=== PATIENT | female | born 1975 | race Hispanic/Latino ===

== ENCOUNTER 2022-12-29 05:32 | Day surgery (SDC) | payer OTHER ==
[2022-12-28 11:28] VITALS: BMI 28.6
[2022-12-29] MEDS ORDERED: Sevoflurane 250 ML INH ANEST BOTTLE ONE (06:27)
[2022-12-29] MEDS ORDERED: Lidocaine 1% PF 5 ML VIAL ONE (06:46)
[2022-12-29] MEDS ORDERED: fentaNYL 50 mcg/mL 1 mL Vial ONE (06:46)
[2022-12-29] MEDS ORDERED: PROPOFOL 20 ML ONE (06:46)
[2022-12-29] MEDS ORDERED: Midazolam HCl 2 mg/2 ml Vial ONE (06:46)
[2022-12-29 06:55] LABS: Hematocrit 34.1 % (34.9-44.5); Mean Corpuscular HGB CONC 32.3 g/dL (32.0-36.0); Mean Corpuscular Hemoglobin 28.1 pg (27.0-33.0); Mean Platelet Volume 9.5 fl (7.4-10.4); Platelet Count 298 10x3/uL (150-450); RBC Distribution Width 12.8 % (11.5-14.5); Red Blood Cell (RBC) Count 3.92 10x6/uL (3.90-5.03); White Blood Cell (WBC) Count 5.3 10x3/uL (3.5-10.5)
[2022-12-29] MEDS ORDERED: metroNIDAZOLE 500 MG/100 ML BAG ONE (06:59)
[2022-12-29 07:18] LABS: BHCG - Serum Negative (NEGATIVE); Pregs Control Background? CLEAR/WHITE (CLR/WHITE); Pregs Control Bar Appear? YES (CONTROL BAR)
[2022-12-29 07:28] LABS: Anion Gap 9 mmol/L (10-20); BUN (Urea Nitrogen) 10 mg/dL (7.0-18.7); Calc. Creatinine Clearance 133 mL/min (70-130); Calcium 8.6 mg/dL (7.8-10.44); Carbon Dioxide 24 mmol/L (22-29); Chloride 109 mmol/L (98-107); Estimated GFR 110; Glucose 107 mg/dL (70-105); Potassium 3.4 mmol/L (3.5-5.1); Sodium 139 mmol/L (136-145)
[2022-12-29] MEDS ORDERED: Dexamethasone 20 MG/5 ML VIAL ONE (07:39)
[2022-12-29] MEDS ORDERED: Ondansetron PF 4 MG/2 ML Vial ONE (07:39)
[2022-12-29] MEDS ORDERED: ePHEDrine Sulfate 50 MG/10 ML VIAL ONE (07:58)
== END 2022-12-29 09:20 | disposition home or self-care (01) ==
LOC: CSHSDC 05:32
PROVIDERS: ATTEND Obstetrics & Gynecology
PROC: 0UDB8ZZ Extraction of Endometrium, Via Natural or Artificial Opening Endoscopic (ICD-10-PCS; principal; 2022-12-29)
DX: D25.9 Leiomyoma of uterus, unspecified (principal); N85.8 Other specified noninflammatory disorders of uterus; N85.00 Endometrial hyperplasia, unspecified; Z88.5 Allergy status to narcotic agent; Z79.899 Other long term (current) drug therapy
CPT/HCPCS: 80048; 84703; 85027; 88305; J1100; J2250; J2405; J2704; J3010